=== PATIENT | male | born 1940 | race Caucasian/White ===

== ENCOUNTER 2022-11-05 09:55 | Emergency (ER) | payer MEDICARE, BC, SELFPAY ==
[2022-11-05] VITALS (10 sets, daily range): BP systolic 128–153; BP diastolic 68–91; PULSE 82–96; RESP 12–21; TEMP 36.8; O2SAT 92–99; BMI 28.7
--- NOTE | 2022-11-05 10:07 | CRLHL7_ITS ---
For Patients: As a result of the Century Cures Act, medical imaging exams and procedure reports are released immediately into your electronic medical record. You may view this report before your referring provider. If you have questions, please contact your health care provider. INDICATION: Aphasia TECHNIQUE: Noncontrast axial CT of the head. Coronal and sagittal reformats. Bone and soft tissue algorithms. COMPARISON: No relevant comparison studies available at this institution. FINDINGS: The ventricles and cortical sulci are diffusely prominent. No midline shift or mass effect. No acute intracranial hemorrhage or extra-axial fluid collection. Ornelas-white matter differentiation is grossly maintained. Patchy supratentorial white matter hypoattenuation. Calcific plaquing of the intracranial ICAs and vertebral arteries. Diminutive/non dominant left transverse sinus. Empty sella variant. Bony calvarium appears grossly intact. Paranasal sinuses and mastoid air cells are clear. Bilateral lens implants. IMPRESSION: 1. No CT evidence of acute intracranial abnormality. 2. Generalized cerebral volume loss with mild chronic microangiopathy changes. Please note that all CT scans at this facility use dose modulation, iterative reconstruction, and/or weight-based dosing when appropriate to reduce radiation dose to as low as reasonably achievable. Dictated by Maryjane Davis MD @ 11/05/2022 10:52:14 AM (Electronically Signed)
--- NOTE | 2022-11-05 10:07 | CRLHL7_ITS ---
For Patients: As a result of the Century Cures Act, medical imaging exams and procedure reports are released immediately into your electronic medical record. You may view this report before your referring provider. If you have questions, please contact your health care provider. DATE: 11/05/2022 CLINICAL HISTORY: Patient with aphasia. TECHNIQUE: Standard helical CT image acquisition of the neck up to the skull base after bolus intravenous contrast enhancement. Multiplanar reconstructed images performed on a separate workstation. COMPARISON: CT same day. FINDINGS: The origins of the great vessels from the aortic arch are patent. The origin of the right vertebral artery is patent. The origin of the left vertebral artery is patent. The common carotid arteries are patent. There is a mild (<50%) stenosis at the origin of the right internal carotid artery by NASCET criteria. This is caused by non-calcified plaque with a <2mm residual lumen. There is a mild (<50%) stenosis at the origin of the left internal carotid artery by NASCET criteria. This is caused by calcified and non-calcified plaque with a <2mm residual lumen. The rest of the cervical segments of the internal carotid arteries are patent up to the skull base. The vertebral arteries are codominant. The cervical segments of the vertebral arteries are patent up to the skull base. The visualized lung apices are unremarkable. The thyroid gland is unremarkable. The soft tissues of the neck are unremarkable. There are degenerative changes in the cervical spine. IMPRESSION: 1. Mild (<50%) stenosis at the origin of the right internal carotid artery by NASCET criteria caused by non-calcified plaque with a <2mm residual lumen. 2. Mild (<50%) stenosis at the origin of the left internal carotid artery by NASCET criteria caused by calcified and non-calcified plaque with a <2mm residual lumen. Please note that all CT scans at this facility use dose modulation, iterative reconstruction, and/or weight-based dosing when appropriate to reduce radiation dose to as low as reasonably achievable. Dictated by Luis Barnes MD @ 11/05/2022 12:35:27 PM (Electronically Signed)
--- NOTE | 2022-11-05 10:07 | CRLHL7_ITS ---
For Patients: As a result of the Century Cures Act, medical imaging exams and procedure reports are released immediately into your electronic medical record. You may view this report before your referring provider. If you have questions, please contact your health care provider. DATE: 11/05/2022 CLINICAL HISTORY: Patient with aphasia. TECHNIQUE: Standard helical CT image acquisition through the intracranial circulation following intravenous administration of contrast material with bolus tracking. Multiplanar reconstructed images were performed and interpreted. COMPARISON: CT same day. FINDINGS: There is no proximal intracranial large vessel occlusion. There is an infundibulum at the origin of a right M1 segment anterior temporal branch. There is mild diffuse intracranial atherosclerosis. IMPRESSION: 1. No proximal intracranial large vessel occlusion. 2. Mild diffuse intracranial atherosclerosis. Please note that all CT scans at this facility use dose modulation, iterative reconstruction, and/or weight-based dosing when appropriate to reduce radiation dose to as low as reasonably achievable. Dictated by Luis Barnes MD @ 11/05/2022 12:38:18 PM (Electronically Signed)
[2022-11-05 10:19] LABS: Creatinine, Point-of-Care* 1.7 mg/dl (0.6-1.3)
[2022-11-05 10:22] LABS: Basophils Absolute Auto 0.02 K/uL (0.00-0.30); Basophils Percent Auto 0.3 % (0.0-3.0); Eosinophils Absolute Auto 0.11 K/uL (0.00-0.50); Eosinophils Percent Auto 1.8 % (0.0-7.0); Hematocrit 52.8 % (37.0-53.0); Hemoglobin* 16.8 gm/dL (13.5-17.5); Immature Granulocytes Abs Auto 0.02 K/uL (0.00-0.30); Immature Granulocytes Pct Auto 0.3 %; Lymphocytes Percent Auto 24.2 % (20-44); Mean Corpuscular HGB Conc 32 gm/dL (32-36); Mean Corpuscular Hemoglobin 29 pg (26-34); Mean Corpuscular Volume 90 fL (80-100); Monocytes Percent Auto 9.5 % (0.0-11.0); Neutrophils Absolute Auto 3.95 K/uL (1.7-7.0); Neutrophils Percent Auto 63.9 % (42.0-72.0); Platelet Count* 203 K/uL (140-440); RDW Coefficient of Variation % 13.5 % (11.5-15.5); Red Blood Count 5.89 m/uL (4.30-5.90); White Blood Count* 6.19 K/uL (4.50-11.00)
[2022-11-05 10:25] LABS: Slide Review Reflex No
--- NOTE | 2022-11-05 10:26 | ED_ITS ---
HPI - Neuro Symptoms/Deficit General Time Seen by Provider: 10:00 Date Seen: 11/05/22 Chief Complaint: Neuro Symptoms/Altered Deficit Stated Complaint: Confused Time Seen by Provider: 11/05/22 10:05 Source: patient and EMS Mode of arrival: EMS Limitations: no limitations and altered mental status History of Present Illness HPI Narrative: Patient is 82-year-old gentleman who was apparently in his normal health, got up this morning normally common approximate 8:30 was really chronic did communicate with his when he felt. She was concerned as he has never before been confused like this, he just has a hard time getting out what he wants to say, he seems to think that whatever is going on is somehow related to his blood pressure medication which was recently changed, 3 days ago. No history of fevers chills or sweats, he has no history of falls or injury denies any numbness tingling or weakness or his hands or his feet, EMS said he did tend to perseverate on the way over here. Alert and oriented x3, no previous cardiac or history of previous strokes, does have a pulsed, Time: 08:30 Last Observed Normal: 08:30 Timing confirmed by: spouse Location: speech History of same: Yes Severity: mild Relieving factors: none Exacerbating factors: none Treatments Prior to Arrival: none Related Data Home Medications Medication Instructions Recorded Confirmed allopurinol 300 mg tablet 300 mg PO DAILY 11/05/22 11/05/22 levothyroxine 88 mcg tablet 88 mcg PO .COMPLEX 11/05/22 11/05/22 lisinopril 10 1 tab PO DAILY 11/05/22 11/05/22 mg-hydrochlorothiazide 12.5 mg tablet Allergies Allergy/AdvReac Type Severity Reaction Status Date / Time No Known Drug Allergies Allergy Verified 11/05/22 10:14 Review of Systems Status of ROS: Reports: 10 or more systems reviewed and unremarkable except as noted in History and below PFSH PFS Social History Smoking Status: Smoker, status unknown Exam Narrative: Exam Narrative: Patient is seen in room 8, he is in no apparent distress he is able to move himself off the gurney and onto our hospital bed with no problems at all. Follo ws directions normal, is actually alert oriented x3 to person place and time, he does however have somewhat of a hard time getting his words out almost seems to be a combination of both broke as and warning keys type aphasia. Able to whistle cranial nerves 3-12 are normal, strength is excellent in his upper lower extremities both proximally and distally, no drift noted, able to sit up with nose no truncal ataxia, no movement disorder, pupils are equal round reactive to light, track normally extraocular muscles are normal, TMs are normal oropharynx normal neck is supple carotid upstrokes are equal bilaterally, heart sounds no clicks murmurs or gallops abdomen is soft there is no guarding no tenderness no organomegaly, skin is otherwise normal, Const: Vital Signs, click to edit/add: Vital Signs - 24 hr 11/05/22 09:55 Temperature 98.2 F Pulse Rate [Pulse Oximeter] 89 Respiratory Rate 14 Blood Pressure [Le ft Upper Arm] 149/89 H Pulse Oximetry 96 Oxygen Delivery Me thod Room Air Documenting provider has reviewed patient's vital signs: yes Course Course Hospital Course: Patient is seen, head CT shows small narrowing on the left side of the MCA at the P2 take off, with a small aneurysm of 2 mm, I discussed the case with Dr. Nicolas clifton Stroke Neurology [facility] at 11:30 a.m., he did not recommend any tPA at this point, as the patient has recover, is now at baseline according both his son and his partner. I do think however that 81 mg of aspirin a day would be beneficial to him, and then follow-up for his hypertension with his primary care physician, I alerted him to the findings on the CTA, and also the fact that his creatinine was borderline high, and should be followed up. They were comfortable with this, they will return signs and symptoms of worsening occur. Vital Signs Vital signs: Initial Vital Signs Temperature 98.2 F 11/05/22 09:55 Temperature Source Temporal Artery Scan 11/05/22 09:55 Pulse Rate 89 11/05/22 09:55 Pulse Rhythm 11/05/22 09:55 Respiratory Rate 14 11/05/22 09:55 Blood Pressure 149/89 H 11/05/22 09:55 Blood Pressure Mean 109 11/05/22 09:55 Blood Pressure Position Supine 11/05/22 09:55 Pulse Oximetry 96 11/05/22 09:55 Oxygen Delivery Method 11/05/22 09:55 Vital Signs Temperature 98.2 F 11/05/22 09:55 Pulse Rate 89 11/05/22 09:55 Respiratory Rate 14 11/05/22 09:55 Blood Pressure 149/89 H 11/05/22 09:55 Pulse Oximetry 96 11/05/22 09:55 Oxygen Delivery Method 11/05/22 09:55 Temperature 98.2 F 11/05/22 09:55 Pulse Rate 89 11/05/22 09:55 Respiratory Rate 14 11/05/22 09:55 Blood Pressure 149/89 H 11/05/22 09:55 Pulse Oximetry 96 11/05/22 09:55 Oxygen Delivery Method 11/05/22 09:55 MDM - Neuro Symptoms/Deficit MDM Narrative Medical decision making narrative: Life-threatening differential diagnosis considered include stroke, coronary artery disease, pneumonia, and heart failure. Other differential diagnosis include but are not limited to electrolyte imbalances, anemia, medication reactions, and urinary tract infection Medical Records Attestation: I reviewed the patient's medical records. Lab Data Attestation: I reviewed the patient's lab results. Labs: Lab Results 11/05/22 11/05/22 11/05/22 Range/Units 10:10 10:10 10:10 WBC 6.19 (4.50-11.00) K/uL RBC 5.89 (4.30-5.90) m/uL Hgb 16.8 (13.5-17.5) gm/dL Hct 52.8 (37.0-53.0) % MCV 90 (80-100) fL MCH 29 (26-34) pg MCHC 32 (32-36) gm/dL RDW Coeff of Pedrito 13.5 (11.5-15.5) % Plt Count 203 (140-440) K/uL Neut % (Auto) 63.9 (42.0-72.0) % Lymph % (Auto) 24.2 (20-44) % Kinney % (Auto) 9.5 (0.0-11.0) % Eos % (Auto) 1.8 (0.0-7.0) % Baso % (Auto) 0.3 (0.0-3.0) % Neut # (Auto) 3.95 (1.7-7.0) K/uL Lymph # (Auto) 1.50 (0.90-2.90) K/uL Kinney # (Auto) 0.60 (0.00-0.90) K/UL Eos # (Auto) 0.11 (0.00-0.50) K/uL Baso # (Auto) 0.02 (0.00-0.30) K/uL INR 1.04 (0.91-1.10) APTT 27 (23-33) Seconds D-Dimer Quant (PE/DVT) 1.38 H (0.00-0.50) ug/ml Sodium 142 (135-149) mmol/L Potassium 3.6 (3.6-5.1) mmol/L Chloride 107 (96-114) mmol/L Carbon Dioxide 25 (20-32) mmol/L BUN 29 (7-30) mg/dL Creatinine 1.5 (0.5-1.5) mg/dL Estimated Creat Clear 37.85 Estimated GFR 46 ml/min Glucose 104 (60-115) mg/dL Calcium 9.4 (8.4-10.6) mg/dL Ethyl Alcohol < 0.01 L (0.01-0.03) % SARS-CoV-2 (PCR) (Negative) Influenza Type A (PCR) (Negative) Influenza Type B (PCR) (Negative) RSV (PCR) (Negative) POC Creatinine (0.6-1.3) mg/dl 11/05/22 11/05/22 Range/Units 10:10 10:12 WBC (4.50-11.00) K/uL RBC (4.30-5.90) m/uL Hgb (13.5-17.5) gm/dL Hct (37.0-53.0) % MCV (80-100) fL MCH (26-34) pg MCHC (32-36) gm/dL RDW Coeff of Pedrito (11.5-15.5) % Plt Count (140-440) K/uL Neut % (Auto) (42.0-72.0) % Lymph % (Auto) (20-44) % Kinney % (Auto) (0.0-11.0) % Eos % (Auto) (0.0-7.0) % Baso % (Auto) (0.0-3.0) % Neut # (Auto) (1.7-7.0) K/uL Lymph # (Auto) (0.90-2.90) K/uL Kinney # (Auto) (0.00-0.90) K/UL Eos # (Auto) (0.00-0.50) K/uL Baso # (Auto) (0.00-0.30) K/uL INR (0.91-1.10) APTT (23-33) Seconds D-Dimer Quant (PE/DVT) (0.00-0.50) ug/ml Sodium (135-149) mmol/L Potassium (3.6-5.1) mmol/L Chloride (96-114) mmol/L Carbon Dioxide (20-32) mmol/L BUN (7-30) mg/dL Creatinine (0.5-1.5) mg/dL Estimated Creat Clear Estimated GFR ml/min Glucose (60-115) mg/dL Calcium (8.4-10.6) mg/dL Ethyl Alcohol (0.01-0.03) % SARS-CoV-2 (PCR) Negative SARS-CoV-2 (Negative) Influenza Type A (PCR) Negative PCR FLU A (Negative) Influenza Type B (PCR) Negative PCR FLU B (Negative) RSV (PCR) Negative PCR RSV (Negative) POC Creatinine 1.7 H (0.6-1.3) mg/dl Imaging Data CT scan - head: Attestation: I have reviewed the pertinent imaging results. Radiologist's impression: Patient: FARA PANDEY Facility: [facility] Site . Site : [id number] Study: CT Neck Angio Angio CTA PROTOCOL-11/05/2022 11:18:12 AM Ordering Physician: Beny Morel Preliminary Report: Prelim: CTA head: Moderate focal stenosis P2 segment left [employer]. Approximately 2 mm aneurysm versus infundibulum right MCA bifurcation. No intracranial large vessel occlusion. CTA neck: No evidence of flow-limiting stenosis, dissection or pseudoaneurysm in the neck. Dictated by Maryjane Davis MD @ 11/05/2022 11:35:34 AM Read by: Maryjane Davis MD @ 11/05/2022 11:35:38 Discharge Plan Discharge Clinical Impression: Transient cerebral ischemia, Hypertension Patient Disposition: Home w/ Parent or Adult Condition: Improved Instructions: Transient Ischemic Attack (ED), Hypertension (ED) Additional Instructions: Discussed with you in stroke neurologist, he recommends that she take aspirin 81 mg a day, follow-up with her primary care physician for titration of the blood pressure, and check on your kidney status. Increasing problems with word- finding, dizziness, weakness, then I would recommend to come back. I do think that this was a small little will weak all mini-stroke, as there is a small area narrowing in the brain, they would do anything about this, but taking the aspirin does decrease her chance of having a clot within this. There is a also a small aneursym that is seen also. This is below the threshold for doing anything about. Prescriptions: No Action allopurinol 300 mg tablet 300 mg PO DAILY levothyroxine 88 mcg tablet 88 mcg PO .COMPLEX Rx Instructions: 88 mcg orally before breakfast; and every morning three days a week: Sunday, , Sunday lisinopril-hydrochlorothiazide 10-12.5 mg tablet 1 tab PO DAILY Label Comments: TAKE 1 TABLET BY MOUTH EVERY DAY Follow Up/Referrals: Jagdish Land MD [Primary Care Provider] - Stand Alone Forms: iPayment Info Instructions
[2022-11-05 10:43] LABS: Chloride* 107 mmol/L (96-114)
[2022-11-05 10:44] LABS: INR 1.04 (0.91-1.10); Partial Thromboplastin Time* 27 Seconds (23-33); Potassium* 3.6 mmol/L (3.6-5.1); Prothrombin Time 14.2 Seconds; Sodium* 142 mmol/L (135-149)
[2022-11-05 10:46] LABS: Creatinine* 1.5 mg/dL (0.5-1.5); Est. Creatinine Clearance* 37.85; Estimated Glomerular Filt Rate 46 ml/min
[2022-11-05 10:47] LABS: Blood Urea Nitrogen* 29 mg/dL (7-30); Calcium* 9.4 mg/dL (8.4-10.6); Carbon Dioxide* 25 mmol/L (20-32); Ethanol* < 0.01 % (0.01-0.03); Glucose* 104 mg/dL (60-115)
[2022-11-05 10:48] LABS: D Dimer Quantitative* 1.38 ug/ml (0.00-0.50)
[2022-11-05] MEDS: ASPIRIN 81 MG TAB.CHEW 324 MG PO (10:54)
[2022-11-05 11:01] LABS: PCR FLU A Negative PCR FLU A (Negative); PCR FLU B Negative PCR FLU B (Negative); PCR RSV Negative PCR RSV (Negative)
[2022-11-05 11:05] LABS: SARS PCR* Negative SARS-CoV-2 (Negative)
[2022-11-05] MEDS: 0.9 % SODIUM CHLORIDE 1000 ml 1,000 ML IV (12:24)
[2022-11-05 12:58] LABS: Appearance Urine Clear (Clear); Bilirubin Urine Negative (Negative); Blood Urine Negative (Negative); Color Urine Yellow (Yellow); Glucose Urine Negative (Negative); Ketones Urine Negative (Negative); Leukocyte Esterase Urine Negative (Negative); Nitrite Urine Negative (Negative); Protein Urine Negative (Negative); Specific Gravity Urine 1.015 (1.000-1.030); Urobilinogen Urine 0.2 (0.2-1.0); pH Urine 7.5 (5.0-8.5)
[2022-11-05 13:05] LABS: Amphetamine Screen Urine Negative (Negative); Barbiturate Screen Urine Negative (Negative); Benzodiazepines Screen Urine Negative (Negative); Cannabinoid Screen Urine Negative (Negative); Cocaine Screen Urine Negative (Negative); Methadone Screen Urine Negative (Negative); Methamphetamines Screen Urine Negative (Negative); Opiate Screen Urine Negative (Negative); Oxycodone Screen Urine Negative (Negative); Phencyclidine Screen Urine Negative (Negative); Tricyclic Antidepressant Urine Negative (Negative)
[2022-11-05 13:06] LABS: RBC Urine 0-2 (0-2); WBC Urine 0-2 (0-5)
--- NOTE | 2022-11-05 13:12 | ED.NURSE ---
Home meds returned to Pt with POLST document. Pt and S.O. aware that Pt should continue to take BP med (Lisinopril/HCTZ) and agree to call PCP tomorrow for F/U apt.
== END 2022-11-05 13:10 | disposition home or self-care (01) ==
PROVIDERS: Emergency Provider Family Medicine; PCP Family Medicine
DX: G45.9 Transient cerebral ischemic attack, unspecified (principal); I10 Essential (primary) hypertension
CPT/HCPCS: 36415; 70450; 70496; 70498; 80048; 80306; 81001; 82077; 82565; 85025; 85379; 85610; 85730; 87502; 87634; 87635; 93005; 99284; 99285; A9270; J7030; Q9967